=== PATIENT | female | born 1995 ===

== ENCOUNTER 2017-07-15 16:23 | Emergency (ER) | payer OTHER, MEDICAID ==
[2017-07-15 16:25] VITALS: BMI 22.4
--- NOTE | 2017-07-15 18:29 | OBDCSUM ---
Datetime: 07/15/2017 17:05 Discharged to, Provider: Home Follow up at, Provider: Dr Li/Dr vickers Disch Instr Activity: Normal activity Disch Instr Diet: Regular Discharge Diagnosis, Provider: False Labor - Undelivered Discharge Time: 07/15/2017 17:06 Follow up in weeks, Provider: 1-2w Disch Referrals: None
--- NOTE | 2017-07-15 18:30 | OBHP ---
Datetime: 07/15/2017 17:00 IP Adm Impression: , intrauterine ; No Active Labor; Intact Membranes IP Admit Plan: Discharge home Admit Comment, IP Provider: IUP at 34w sent from [facility] for CTX noted on NST. She feels no CTX ; no VB; No SROM...+FM care: Dr Benz - chart rev'd - admitted twice to [facility] andgiven steroids last 3w ago) Meds: vaginal progesterone/Insulin PMH:GDMA2 since admission to [facility] PSH:denies NKA POBH: at 33w and spont ab PGYNH:denies STD A; IUP at 33w; threantend TPL PLAN: discussed case with Dr Li...in light of no CTX pain will discharge home and she will f ollow up as scheduled Pelvic Type - PN: Adequate Extremities - PN: Normal Abdomen - PN: Normal Back - PN: Normal Thyroid - PN: Normal Neurologic - PN: Normal HEENT - PN: Normal General - PN: Normal Membranes, Provider: Intact Pool Provider: Negative IP Hx Assessment: The History has been Reviewed and is Current Vital Signs Provider: Reviewed IP Chief Complaint: Other FHR Category Provider Fetus A: Category I NICHD Decel Fetus A IP Provider: None Dilatation, Provider: 0 Effacement, Provider: 0 DTRs - PN: Normal
[2017-07-15 21:44] VITALS: BP 108/60; PULSE 83; RESP 18; TEMP 97.9
== END 2017-07-15 17:05 | disposition home or self-care (01) ==
LOC: H.EROB2 16:23
DX: O26.93 Pregnancy related conditions, unspecified, third trimester (principal); R10.2 Pelvic and perineal pain; Z3A.34 34 weeks gestation of pregnancy; O47.9 False labor, unspecified

== ENCOUNTER 2017-08-11 19:00 | Inpatient (IN) | payer OTHER, MEDICAID ==
[2017-08-11 19:59] VITALS: BMI 24.0
[2017-08-11] MEDS ORDERED: Oxytocin 30 units/LR 500ML 30 U/500 ML BAG IV SCH (20:30)
[2017-08-11] MEDS ORDERED: Lactated Ringer's 1,000 ML IV SCH ×2 (20:30)
[2017-08-11 21:08] LABS: BASO % 0.3 % (0.0-2.0); EOS # 0.3 K/uL (0.0-0.7); EOS % 2.4 % (0.0-4.0); LYMPH # 1.7 K/uL (1.0-4.3); LYMPH % 15.9 % (20.0-40.0); MEAN CELL VOLUME 83.1 fl (81.0-99.0); MEAN CORPUSCULAR HEMOGLOBIN 27.7 pg (27.0-31.0); MEAN CORPUSCULAR HGB CONC 33.3 g/dL (33.0-37.0); MEAN PLATELET VOLUME 9.7 fl (7.2-11.7); MONO # 0.8 K/uL (0.0-0.8); MONO % 7.6 % (0.0-10.0); NEUT # 7.8 K/uL (1.8-7.0); NEUT % 73.8 % (50.0-75.0); RBC 3.99 Mil/uL (3.80-5.20); RED CELL DISTRIBUTION WIDTH 15.6 % (11.5-14.5); WHITE BLOOD COUNT 10.6 K/uL (4.8-10.8)
[2017-08-12] MEDS ORDERED: Lidocaine 2% Inj (20ml) ONE (02:55)
--- NOTE | 2017-08-12 03:52 | OBADHP ---
Datetime: 08/11/2017 21:30 IP Chief Complaint Other: Oligohydramnios Admit Comment, IP Provider: 22 y/o F at 37 weeks GA was sent here from sonogram facility due t o oligohydramnios. Today's US showed FATIMAH of 3.1 and cephalic presentation. Her has been com plicated by insulin medicated GDM-A2 and Hx of pre-term labor due to incompetent cervix. Pt reports p ositive FM. No VB, CTX's or LOF. Pt denies headache, visual disturbances, dizziness, CP, SOB, abdomin al pain, N/V, pruritus or calf tenderness. NJDA Meds: PNV, Insulin( Regular at 8am and at 4:30 pm. NPH 20 IU in the AM, 8 IU in the PM) PN Care: Dr arellano, [facility]. OB Hx: . 1x spontaneous Ab. 1x NVD at 33 weeks GA. PMHX: denied PSHx: denied FHx: Paternal uncle with Down syndrome. SHx: No tobacco, alcohol or rec drugs. O: Glucose level 72 mg/dL - WNL. A/P 22 y/o F with IUP at 37 weeks GA, oligohydramnios, GDM-A2, Hx of PTL, entering labor. --Admit to L and D --Initiate labor protocol. --Glucose check Q2H. Case discussed with Dr patel, OB precision grinder external GTolentino PGY-[address] Patel: I have evaluated the patient independently and I agree with the above Pelvic Type - PN: Adequate Extremities - PN: Normal Abdomen - PN: Normal Back - PN: Normal Breast - PN: Not Done Lungs - PN: Normal Heart - PN: Normal Thyroid - PN: Normal HEENT - PN: Normal General - PN: Normal FHR - Baseline A Provider: 140 IP Hx Assessment: The History has been Reviewed and is Current Vital Signs Provider: Reviewed IP Chief Complaint: Other NICHD Variability Prov Fetus A: Moderate 6-25bpm NICHD Accel Fetus A IP Provider: [id number] FHR Category Provider Fetus A: Category I Dilatation, Provider: 4 Effacement, Provider: 60 Station, Provider: -1 Genitourinary Exam: Normal DTRs - PN: Normal EGA AdmitDate IP: 37.0 IP Adm Impression: Term, intrauterine IP Admit Plan: Admit to unit; Initiate labor protocol Datetime: 07/15/2017 17:00 Neurologic - PN: Normal Membranes, Provider: Intact Pool Provider: Negative NICHD Decel Fetus A IP Provider: None
--- NOTE | 2017-08-12 03:52 | OBDS ---
DELIVERY PERSONNEL Delivery Doctor: Charlee Patel MD Automobile Mechanic Supervisor: Yonas Romeliaadrián RN MATERNAL INFORMATION Delivery Anesthesia: Local Medications in Delivery: PITOCIN 20 UNITS IN 1000ML LR Estimated Blood Loss (ml): 100 Placenta Cultured: No Maternal Complications: Precipitous Labor (<3hrs) Provider Comments: of live female over intact perineum, DENNIS presentation followed by kleber terry and rest of infant atraumatically, 5lbs 13oz, 9/9, mouth and nose suctioned, cord clamped and cut, infant placed in warmer, cord blood obtained, placenta delivered spontaneously, labial abrasions repaired with 3-0 vicryl rapide, [id number], pt tolerated procedure LABOR SUMMARY EDC: 09/01/2017 00:00 No. Babies in Womb: 1 Attempted: No Labor Anesthesia: None LABOR INFORMATION Reason for Induction: Oligohydramnios Onset of Labor: 08/12/2017 02:00 Complete Dilatation: 08/12/2017 02:45 Oxytocin: Induction Group B Beta Strep: Done, Result Unknown Antibiotics # of Doses: 0 Steroids Given: > 24 Hours before Delivery Reason Steroids Not Administered: Indication MEMBRANES Membranes Rupture Method: Spontaneous Rupture of Membranes: 08/12/2017 02:55 Length of Rupture (hrs): 0.08 Amniotic Fluid Color: Clear Amniotic Fluid Amount: Small Amniotic Fluid Odor: Normal STAGES OF LABOR Stage 1 hrs: 0 Stage 1 min: 45 Stage 2 hrs: 0 Stage 2 min: 15 VAGINAL DELIVERY Laceration Extension: First Degree Laceration Type: Vaginal Laceration Repair: Yes Initial Vag Sponge Count: 5 Final Vag Sponge Count: 5 Initial Vag Sharps Count: 0 Final Vag Sharps Count: 2 Sponge Count Correct: Yes Sharps Count Correct: Yes BABY A INFORMATION Delivery Date/Time: 08/12/2017 03:00 Method of Delivery: Vaginal Born in Route : No : N/A Forceps: N/A Vacuum Extraction: N/A Shoulder Dystocia : No SHOULDER DYSTOCIA BABY A Delivery Date/Time: 08/12/2017 03:00
[2017-08-12] MEDS ORDERED: Oxycodone/Acetaminophen 5/325 mg Tab PO PRN ×2 (04:04)
[2017-08-12] MEDS ORDERED: Benzocaine/Menthol SPRAY TOP PRN (04:04)
[2017-08-12 07:05] LABS: HEMOGLOBIN 10.6 g/dL (12.0-16.0); MEAN CELL VOLUME 84.1 fl (81.0-99.0); MEAN CORPUSCULAR HEMOGLOBIN 27.5 pg (27.0-31.0); MEAN CORPUSCULAR HGB CONC 32.7 g/dL (33.0-37.0); RBC 3.84 Mil/uL (3.80-5.20); RED CELL DISTRIBUTION WIDTH 15.7 % (11.5-14.5); WHITE BLOOD COUNT 15.2 K/uL (4.8-10.8)
[2017-08-12] MEDS: Multivitamin With Minerals Tab PO SCH (08:25)
[2017-08-13 06:50] LABS: HEMOGLOBIN 10.9 g/dL (12.0-16.0); MEAN CELL VOLUME 82.7 fl (81.0-99.0); MEAN CORPUSCULAR HEMOGLOBIN 28.5 pg (27.0-31.0); MEAN CORPUSCULAR HGB CONC 34.4 g/dL (33.0-37.0); RBC 3.82 Mil/uL (3.80-5.20); RED CELL DISTRIBUTION WIDTH 15.4 % (11.5-14.5); WHITE BLOOD COUNT 11.3 K/uL (4.8-10.8)
[2017-08-13] MEDS: Multivitamin With Minerals Tab PO SCH (10:00)
--- NOTE | 2017-08-13 14:46 | OBPPN ---
Datetime: 08/13/2017 14:43 PP Pain Prov: Within normal limits PP Nausea Prov: Denies PP Flatus Prov: Yes PP Breasts Prov: Not Done PP Heart Prov: Normal PP Lungs Prov: Normal PP Abdomen/Uterus Prov: Normal PP Lochia Prov: Not Done PP Vulva/Perineum Prov: Not Done PP CVA Tenderness Prov: Normal PP Extremities Prov: Normal PP Progress Prov: Normal PP Impression Prov: Normal progression PP Plan Prov: Discharge PP Progress Note Prov: Patient doing well ambulating tolerating diet reports minimal lochia Vital signs stable afebrile Uterus firm below the umbilicus day #1 Encourage ambulation, analgesia as needed, anticipate discharge in a.m. Vital Signs Provider PP: Reviewed
[2017-08-14] MEDS: Multivitamin With Minerals Tab PO SCH (10:27)
[2017-08-14 19:49] VITALS: BP 113/74; PULSE 80; RESP 20; TEMP 98; O2SAT 99
== END 2017-08-14 14:42 | disposition home or self-care (01) | DRG 775 ==
LOC: H.EROB2 19:00 → H.L&D 20:26 → H.OB/GYN 08-12 04:40
PROVIDERS: ADMIT Obstetrics & Gynecology; ATTEND Obstetrics & Gynecology
PROC: 4A1HXCZ Monitoring of Products of Conception, Cardiac Rate, External Approach (ICD-10-PCS; 2017-08-11)
PROC: 10E0XZZ Delivery of Products of Conception, External Approach (ICD-10-PCS; principal; 2017-08-12)
PROC: 0HQ9XZZ Repair Perineum Skin, External Approach (ICD-10-PCS; 2017-08-12)
DX: O41.03X0 Oligohydramnios, third trimester, not applicable or unspecified (principal); O24.414 Gestational diabetes mellitus in pregnancy, insulin controlled; O70.0 First degree perineal laceration during delivery; O62.3 Precipitate labor; Z37.0 Single live birth; Z3A.37 37 weeks gestation of pregnancy; Z87.51 Personal history of pre-term labor